=== PATIENT | female | born 1975 | race Native Hawaiian/Other Pacific Islander ===

== ENCOUNTER 2017-05-24 13:05 | Outpatient (CLI) | payer OTHER | END 2017-05-24 18:21 | disposition home or self-care (01) | LOC: RAD 13:05 | DX: S93.401A Sprain of unspecified ligament of right ankle, initial encounter (principal) ==

== ENCOUNTER 2019-09-14 15:04 | Emergency (ER) | payer BC ==
[~2019-09-14] VITALS: Ht 157.5 cm; Wt 62.6 kg
[2019-09-14 16:18] LABS: PLATELET COUNT 284 K/uL (152-353)
[2019-09-14 16:26] LABS: POTASSIUM 4.9 mmol/L (3.6-5.2)
[2019-09-14 18:06] VITALS: BP 112/65; TEMP 98.3
== END 2019-09-14 18:11 | disposition home or self-care (01) ==
LOC: ED 15:04
PROVIDERS: Hospitalist
DX: R10.9 Unspecified abdominal pain (principal); R11.2 Nausea with vomiting, unspecified; E86.0 Dehydration; Z11.59 Encounter for screening for other viral diseases
CPT/HCPCS: 36415; 80053; 81000; 81025; 82150; 83690; 85027; 87635; 96360; 96365; 96375; 99284; J0696; J1885; J2405; U00003